=== PATIENT | male | born 1945 | race Asian ===

== ENCOUNTER 2022-12-12 07:09 | Day surgery (SDC) | payer BC ==
[2022-12-12] VITALS (14 sets, daily range): BP systolic 113–197; BP diastolic 67–98
[~2022-12-12] VITALS: Ht 175.3 cm; Wt 93.8 kg
[2022-12-12] MEDS ORDERED: normal saline 1000ml 1,000 ML IV PRN (07:40)
[2022-12-12] MEDS ORDERED: SILD20TA2 PO (07:56)
[2022-12-12] MEDS ORDERED: AMLO5TAB4 PO (07:56)
[2022-12-12] MEDS ORDERED: FLO0.4C PO (07:56)
[2022-12-12] MEDS ORDERED: HYDR-3973 PO (07:56)
[2022-12-12] MEDS ORDERED: LISI40TA13 PO (07:56)
[2022-12-12 08:39] LABS: EOSINOPHILS # (AUTO) 0.3 X10'3 (0-0.9); HEMOGLOBIN 14.4 g/dl (14.0-17.9); MEAN CORPUSCULAR HGB CONC 33.5 g/dL (33.0-36.5); WHITE BLOOD COUNT 4.9 X10'3 (4.5-11.0)
[2022-12-12 08:40] LABS: BASOPHILS % (AUTO) 0.9 % (0-1); EOSINOPHILS % (AUTO) 5.1 % (0-6); HEMATOCRIT 42.8 % (42.0-52.0); LYMPHOCYTES % (AUTO) 19.5 % (21-51); MEAN CORPUSCULAR VOLUME 89.3 FL (78-98); MEAN PLATELET VOLUME 8.1 FL (7.4-10.4); MONOCYTES # (AUTO) 0.4 X10'3 (0-0.9); MONOCYTES % (AUTO) 7.9 % (2-12); NEUTROPHILS # (AUTO) 3.3 X10'3 (1.8-7.7); NEUTROPHILS % (AUTO) 66.6 % (42-75); PLATELET COUNT 292 X10'3 (140-440); RED CELL DISTRIBUTION WIDTH 13.5 % (11.5-14.5)
[2022-12-12 08:46] LABS: ALBUMIN 3.7 G/DL (3.4-5.0); ANION GAP 8 (8-16); BLOOD UREA NITROGEN 21 MG/DL (7-18); BUN/CREATININE RATIO 20.4 (10.0-20.0); CALCIUM 9.5 MG/DL (8.5-10.1); CHLORIDE 104 MMOL/L (99-107); CREATININE 1.03 MG/DL (0.60-1.10); GLUCOSE 106 MG/DL (70-104); POTASSIUM 3.9 MMOL/L (3.5-5.1); SODIUM 142 MMOL/L (135-145); TOTAL CARBON DIOXIDE 29.9 MMOL/L (24-32); eGFR 70 ML/MIN
[2022-12-12] MEDS ORDERED: LIDOcaine 1% 30ml preserv. free vial ONE (09:37)
[2022-12-12] MEDS ORDERED: fentaNYL/PF 50MCG/1 ML 2ML syringe ONE (09:43)
[2022-12-12] MEDS ORDERED: midazolam 1 mg/ML 2ml injection ONE (09:43)
[2022-12-12] MEDS ORDERED: normal saline 1000ml 1,000 ML IV SCH (10:15)
[2022-12-12] MEDS ORDERED: pneumococcal 23-VAL P-sac vacc 25 mcg/0.5ml vial IMVAC ONE (15:00)
== END 2022-12-12 13:40 | disposition home or self-care (01) ==
LOC: SSTAY O 07:09
PROVIDERS: ATTEND Radiology Diagnostic Radiology
DX: C79.89 Secondary malignant neoplasm of other specified sites (principal); C41.2 Malignant neoplasm of vertebral column; M16.12 Unilateral primary osteoarthritis, left hip; I10 Essential (primary) hypertension; Z79.899 Other long term (current) drug therapy; Z87.891 Personal history of nicotine dependence; Z79.01 Long term (current) use of anticoagulants; Z23 Encounter for immunization
CPT/HCPCS: 20206; 36415; 76942; 80048; 85025; 85610; 90471; 90732; 99152; 99153; J2250; J3010; J3490; J7030; A4615; A6449

== ENCOUNTER 2023-01-24 06:38 | Day surgery (SDC) | payer BC ==
[~2023-01-24] VITALS: Ht 175.3 cm; Wt 90.9 kg
[~2023-01-24 06:38] MED LIST: AMLO5TAB4 PO; FLO0.4C PO; HYDR-3973 PO; LISI40TA13 PO; SILD20TA2 PO
[2023-01-24 06:55] VITALS: BP 154/91
[2023-01-24] MEDS ORDERED: ACET-1059 PO (07:12)
[2023-01-24] MEDS ORDERED: TYLENOL (07:12)
[2023-01-24] MEDS ORDERED: ONDA8TAB13 PO (07:12)
[2023-01-24] MEDS ORDERED: GLUC1CAP36 PO (07:12)
[2023-01-24] MEDS ORDERED: IBUP-2768 PO (07:12)
[2023-01-24] MEDS ORDERED: MULT-1085 PO (07:12)
[2023-01-24] MEDS ORDERED: ATOR10TA70 PO (07:12)
[2023-01-24] MEDS ORDERED: PROC10TA10 PO (07:12)
[2023-01-24] MEDS ORDERED: [UNRECOGNIZED DRUG - CODE] (07:12)
[2023-01-24] MEDS ORDERED: ASCO500C17 PO (07:12)
[2023-01-24] MEDS ORDERED: ZINC50CA2 PO (07:12)
[2023-01-24] MEDS ORDERED: TUME1CAP (07:12)
[2023-01-24] MEDS ORDERED: FENT1PAT7 TOP (07:12)
[2023-01-24] MEDS ORDERED: LIDOcaine Viscous 15ml cup ONE (07:23)
[2023-01-24] MEDS ORDERED: fentaNYL/PF 50MCG/1 ML 2ML syringe ONE (07:23)
[2023-01-24] MEDS ORDERED: MIDAZolam 1 MG/ML 5ML VIAL ONE (07:23)
[2023-01-24 08:16] VITALS: BP 146/97
[2023-01-24 08:26] VITALS: BP 137/82
[2023-01-24 08:36] VITALS: BP 141/89
[2023-01-24 08:46] VITALS: BP 139/87
== END 2023-01-24 08:50 | disposition home or self-care (01) ==
LOC: GI LAB 06:38
PROVIDERS: ATTEND Internal Medicine Gastroenterology
DX: R93.3 Abnormal findings on diagnostic imaging of other parts of digestive tract (principal); K29.50 Unspecified chronic gastritis without bleeding; K20.80 Other esophagitis without bleeding; K22.2 Esophageal obstruction; I10 Essential (primary) hypertension; Z79.899 Other long term (current) drug therapy; Z85.89 Personal history of malignant neoplasm of other organs and systems
CPT/HCPCS: 43239; G0500; J2250; J3010; J7030; Z7512; 99152; A4620